=== PATIENT | male | born 1975 | race Caucasian/White ===

== ENCOUNTER 2018-01-02 20:29 | Inpatient (IN) ==
[2018-01-02] MEDS ORDERED: 0.9 % Sodium Chloride 1,000 ML IVC ONE ×3 (21:19→23:03)
--- NOTE | 2018-01-02 21:24 | Emergency Department Note ---
START Narrative - START START: Patient is a 42-year-old male smoker with known h/o of IV drug use that arrives via squad to ED. He states he states he was seen in this department yesterday, was advised to be admitted, but had left AGAINST MEDICAL ADVICE. He states he had left to help take care of his children, his symptoms have worsened. He said he has made arrangements for his children and denies any reason to leave again. Patient had complained of lightheadedness in the waiting room. I had reviewed triage notes, and yesterday's documentation. Patient is afebrile, but he was tachycardia in the 130s. Patient has had positive blood cultures drawn yesterday, and provider documentation from yesterday mentions concern for septic emboli. Patient will be placed in a medical bed, care of this patient will be transferred over to attending and resident providers, please see their further documentation for details and disposition of patient. Patient denies any home antibiotics. I ordered an EKG, and fluids, repeat troponin since it was elevated yesterday, and sepsis workup.
[2018-01-02] MEDS ORDERED: Isovue-370 500 ML INFUS..BTL IV ONE ×2 (21:30→22:12)
[2018-01-02] MEDS ORDERED: Ketorolac 15 MG/ML VIAL IVP ONE (21:37)
[2018-01-02] MEDS ORDERED: Nicotine 14 MG PATCH.TD24 TD STA (21:42)
[2018-01-02] MEDS ORDERED: *HR* OxyCODONE/APAP 5/325 TABLET PO ONE (21:42)
[2018-01-02] MEDS ORDERED: Piperacillin/Tazobactam 3.375 GM in 0.9 % Sodium Chloride Mini Bag 100 ML IVPB ONE (21:45)
[2018-01-02 21:46] LABS: Bilirubin,Urine Negative (Negative); Blood,Urine Large (Negative); Clarity,Urine Clear (Clear); Color,Urine Dark Yellow (Yellow); Glucose,Urine (UA) Normal (Normal); Ketones,Urine Negative (Negative); Leukocyte Esterase,Urine Negative (Negative); Nitrite,Urine Negative (Negative); Protein,Urine 100 mg/dL (Neg-Trace); Specific Gravity,Urine > 1.030 (1.010-1.025); Urobilinogen,Urine Normal (Normal)
[2018-01-02 21:48] LABS: Bacteria,Urine None Seen per hpf (None-Few); Hyaline Casts,Urine Few per lpf (None-Few); RBC,Urine 0-3 per hpf (0-3); Squamous Epithelial Cell,Urine Many per lpf (None-Few)
[2018-01-02 21:59] LABS: Basophils # 0.1 K/mcL (0.0-0.2); Basophils % 0.5 %; Eosinophils % 0.1 %; Hematocrit 42.4 % (37.5-50.1); Hemoglobin 14.6 g/dL (12.9-16.9); Immature Granulocytes % 1.1 % (0-4); Lymphocytes # 0.8 K/mcL (0.6-4.6); Lymphocytes % 5.2 %; Mean Corpuscular HGB Conc 34.4 g/dL (31.6-35.5); Mean Corpuscular Hemoglobin 28.2 pg (28.0-33.3); Mean Platelet Volume 12.4 fL (9.4-12.4); Monocytes % 6.1 %; Platelet Count 145 K/mcL (140-400); Red Blood Count 5.17 M/mcL (4.19-5.50); Red Cell Distribution Width 13.7 % (11.5-14.5)
--- NOTE | 2018-01-02 22:00 | Emergency Department Note ---
Disposition Clinical Impression: Elevated troponin, Staphylococcus aureus bacteremia with sepsis, IV drug user Pulmonary emboli Qualifiers: Pulmonary embolism type: septic Chronicity: acute Acute cor pulmonale presence : without acute cor pulmonale Qualified Code(s): I26.90 - Septic pulmonary embolism without acute cor pulmonale Disposition: Admitted As Inpatient Condition: Fair Referrals: NONE,PCP [Primary Care Provider] - Forms: ED Satisfaction Letter, Work/School Release General Adult HPI - General Chief complaint: ED General Medical Stated complaint: joint pain Time Seen by Provider: 01/02/18 21:14 Source: patient Limitations: no limitations Nursing Notes Reviewed: Yes Vital Signs Reviewed: Yes - History of Present Illness HPI Narrative: 42-year-old male presents to the emergency department with concern for chest pain and left shoulder pain. Patient was recently seen in the emergency yesterday by me and left AGAINST MEDICAL ADVICE. States that he is feeling worse. Patient states that he mostly had abdominal pain yesterday, he is now having chest pain that he reports as really sharp in nature. Pain Scale: 10 - Related Data Home Medications Medication Instructions Recorded Confirmed Cyclobenzaprine HCl 5 mg PO TID 01/01/18 01/02/18 [Cyclobenzaprine HCl] OxyCODONE Immed Rel [Roxicodone 10 10 mg PO TID 01/01/18 01/02/18 MG] Allergies Allergy/AdvReac Type Severity Reaction Status Date / Time venom-honey bee Allergy See Verified 01/02/18 20:46 [bee venom (honey bee)] Comments All systems ED: reviewed and negative except as stated. Review of Systems: As Per HPI Constitutional: Reports: fever, chills Cardiovascular: Reports: chest pain Respiratory: Reports: cough, dyspnea. Denies: wheezes, hemoptysis Gastrointestinal: Denies: abdominal pain, nausea, vomiting Genitourinary: Denies: urgency, dysuria, frequency Musculoskeletal: Reports: other (Left shoulder pain). Denies: back pain Integumentary: Denies: rash Neurological: Denies: headache, weakness, numbness, paresthesias Past Medical History - Past Medical History Medical history: Reports: cancer, other Psychiatric history: Reports: no psych history - Social History Smoking Status: Current every day smoker Smokeless Tobacco Status: No Alcohol use: Reports: none Drug use: Reports: marijuana, IV Drug Use Physical Exam - General Limitations: no limitations General appearance: alert - Head Head exam: atraumatic, normocephalic - Eye Eye exam: Present: EOMI - ENT ENT exam: normal oropharynx, mucous membranes moist - Neck Neck exam: Present: trachea midline. Absent: tenderness, meningismus - Chest Chest inspection: Present: normal inspection, symmetric chest wall rise - Respiratory Respiratory exam: Present: other (Rhonchi throughout). Absent: respiratory distress - Cardiovascular Cardiovascular exam: Present: regular rate, normal rhythm, normal heart sounds - Abdominal Exam Abdominal exam: Present: soft, Non-Tender. Absent: distention, guarding, rebound, rigidity - Extremities Exam Extremities exam: Present: normal capillary refill, other (Left shoulder tenderness upon palpation of the anterior proximal humerus. Neurovascularly intact) - Neurological Exam Neurological exam: Present: alert, oriented X3, CN II-XII intact - Psychiatric Psychiatric exam: Present: normal affect, normal mood - Skin Skin exam: Present: warm, dry, intact, normal color Course Vital Signs Temperature 98.2 F 01/02/18 20:43 Pulse Rate 131 01/02/18 20:43 Respiratory Rate 18 01/02/18 20:43 Blood Pressure 122/73 01/02/18 20:43 O2 Sat by Pulse Oximetry 95 01/02/18 20:43 Temperature 98.2 F 01/02/18 20:46 Pulse Rate 113 01/02/18 22:50 Respiratory Rate 20 01/02/18 22:50 Blood Pressure 108/73 01/02/18 22:50 O2 Sat by Pulse Oximetry 99 01/02/18 22:50 Oxygen Delivery Oxygen Delivery Room Air Medical Decision Making - [facility] Narrative Medical decision making narrative: 42-year-old male presents to the emergency department with concern for pulmonary emboli. Patient was seen in the emergency department by me yesterday and had a CT scan of abdomen and pelvis that was concerning for home emboli. Patient left AGAINST MEDICAL ADVICE before I could obtain a CT angiogram of the chest. Patient currently reporting chest pain. Patient has sinus rhythm with shortened TN interval. Patient given Toradol here in the emergency department as well as Percocet. Leukocytosis of 16,000 today. Yesterday was 17,000. Patient did get 2 g of Rocephin IV yesterday in the emergency department before leaving AGAINST MEDICAL ADVICE as there is concern for possible infected kidney stone. However , CT scan of abdomen and pelvis did not reveal stone. Revealed suspicion of septic pulmonary emboli. Today, however, we started IV vancomycin and Zosyn. Patient had blood culture positive for staph aureus. Do not have the sensitivities back. Patient was given 2 L of fluid with 0.9 normal saline. Lactic acid is within normal limits. Troponin is mildly elevated at 0.05. EKG does not reveal any changes from yesterday. Patient is hyponatremic with a sodium of 124. There is concern for infective endocarditis as patient has a CTA positive for numerous pulmonary nodules, some with cavitation, and some with a feeding vessel , the constellation which is compatible with septic emboli. Patient admitted to the hospitalist. Patient agree with plan. Patient requesting help for his IV drug abuse as well. Chest X-Ray 01/02/18 21:19 IMPRESSION: No focal consolidation. Prominence of interstitial lung markings may represent underlying COPD versus atypical infection. Previously seen pulmonary nodules are not well seen. This can be evaluated on a CT chest. This has been already ordered. D/ / 01/02/2018 21:53:04 Kyle Maciel MD / noe Interpreting Provider: Kyle Maciel MD Chest CTA 01/02/18 21:30 IMPRESSION: Numerous pulmonary nodules, some with cavitation, and some with a feeding vessel, the constellation of which is most compatible with septic emboli. However, these must be followed to resolution to ensure that there is no underlying neoplasm. D/ / Juan Rodriguez MD / Juan Rodriguez MD Interpreting Provider: Juan Rodriguez MD - Lab Data Result diagrams: 01/02/18 21:44 01/02/18 21:44 Lab Results 01/02/18 01/02/18 01/02/18 Range/Units 21:35 21:44 21:44 WBC 16.0 H (4.3-11.1) K/mcL RBC 5.17 (4.19-5.50) M/mcL Hgb 14.6 (12.9-16.9) g/dL Hct 42.4 (37.5-50.1) % MCV 82.0 L (83.0-100.0) fL MCH 28.2 (28.0-33.3) pg MCHC 34.4 (31.6-35.5) g/dL RDW 13.7 (11.5-14.5) % Plt Count 145 (140-400) K/mcL MPV 12.4 (9.4-12.4) fL Immature Gran % 1.1 (0-4) % Seg Neutrophils % 87.0 % Lymphocytes % 5.2 % Monocytes % 6.1 % Eosinophils % 0.1 % Basophils % 0.5 % Neutrophils # 13.9 H (1.6-8.9) K/mcL Lymphocytes # 0.8 (0.6-4.6) K/mcL Monocytes # 1.0 (0.0-1.3) K/mcL Eosinophils # 0.0 (0.0-0.6) K/mcL Basophils # 0.1 (0.0-0.2) K/mcL Platelet Estimate Normal (Normal) Sodium 124 L (136-145) mEq/L Potassium 4.2 (3.5-5.1) mEq/L Chloride 88 L (98-107) mEq/L Carbon Dioxide 27 (23-29) mEq/L BUN 31 H (6-20) mg/dL Creatinine 0.77 (0.70-1.30) mg/dL Est GFR ( Amer) > 60 (> 60) Est GFR (Non-Af Amer) > 60 (> 60) BUN/Creatinine Ratio 40 H (6-26) Glucose 108 H (70-105) mg/dL Calculated Osmolality 265 L (280-300) Lactic Acid (0.5-2.2) mmol/L Calcium 9.7 (8.6-10.3) mg/dL Troponin I 0.05 H* (< 0.04) ng/mL Urine Color Dark Yellow (Yellow) Urine Clarity Clear (Clear) Urine pH 6.0 (5.0-8.0) pH Units Ur Specific [place] > 1.030 H (1.010-1.025) Urine Protein 100 H (Neg-Trace) mg/dL Urine Glucose (UA) Normal (Normal) mg/dL Urine Ketones Negative (Negative) mg/dL Urine Blood Large H (Negative) Urine Nitrite Negative (Negative) Urine Bilirubin Negative (Negative) Urine Urobilinogen Normal (Normal) mg/dL Ur Leukocyte Esterase Negative (Negative) Urine Microscopic RBC 0-3 (0-3) per hpf Urine Microscopic WBC 3-5 H (0-3) per hpf Ur Squamous Epith Cells Many H (None-Few) per lpf Urine Bacteria None Seen (None-Few) per hpf Hyaline Casts Few (None-Few) per lpf Ur Culture Indicated? NO (NO) 01/02/18 Range/Units 21:44 WBC (4.3-11.1) K/mcL RBC (4.19-5.50) M/mcL Hgb (12.9-16.9) g/dL Hct (37.5-50.1) % MCV (83.0-100.0) fL MCH (28.0-33.3) pg MCHC (31.6-35.5) g/dL RDW (11.5-14.5) % Plt Count (140-400) K/mcL MPV (9.4-12.4) fL Immature Gran % (0-4) % Seg Neutrophils % % Lymphocytes % % Monocytes % % Eosinophils % % Basophils % % Neutrophils # (1.6-8.9) K/mcL Lymphocytes # (0.6-4.6) K/mcL Monocytes # (0.0-1.3) K/mcL Eosinophils # (0.0-0.6) K/mcL Basophils # (0.0-0.2) K/mcL Platelet Estimate (Normal) Sodium (136-145) mEq/L Potassium (3.5-5.1) mEq/L Chloride (98-107) mEq/L Carbon Dioxide (23-29) mEq/L BUN (6-20) mg/dL Creatinine (0.70-1.30) mg/dL Est GFR ( Amer) (> 60) Est GFR (Non-Af Amer) (> 60) BUN/Creatinine Ratio (6-26) Glucose (70-105) mg/dL Calculated Osmolality (280-300) Lactic Acid 2.1 (0.5-2.2) mmol/L Calcium (8.6-10.3) mg/dL Troponin I (< 0.04) ng/mL Urine Color (Yellow) Urine Clarity (Clear) Urine pH (5.0-8.0) pH Units Ur Specific [place] (1.010-1.025) Urine Protein (Neg-Trace) mg/dL Urine Glucose (UA) (Normal) mg/dL Urine Ketones (Negative) mg/dL Urine Blood (Negative) Urine Nitrite (Negative) Urine Bilirubin (Negative) Urine Urobilinogen (Normal) mg/dL Ur Leukocyte Esterase (Negative) Urine Microscopic RBC (0-3) per hpf Urine Microscopic WBC (0-3) per hpf Ur Squamous Epith Cells (None-Few) per lpf Urine Bacteria (None-Few) per hpf Hyaline Casts (None-Few) per lpf Ur Culture Indicated? (NO) - Radiology Data Radiology results reviewed: Yes I reviewed the patient's radiology results. - EKG Data EKG #1 EKG attestation: Yes I reviewed and interpreted this EKG. EKG results narrative: 21:19 Ventricular rate 99 bpm, TN interval 97 ms, QRS duration 85 ms, QT 294 ms, QTC 350 ms, normal axis. Sinus rhythm with short TN interval. There is diffuse ST segment elevation of 1 mm.
[2018-01-02 22:03] LABS: Neutrophils # 13.9 K/mcL (1.6-8.9)
[2018-01-02 22:21] LABS: BUN/Creatinine Ratio 40 (6-26); Blood Urea Nitrogen 31 mg/dL (6-20); Calcium 9.7 mg/dL (8.6-10.3); Carbon Dioxide 27 mEq/L (23-29); Chloride 88 mEq/L (98-107); Glucose 108 mg/dL (70-105); Osmolality,Calculated 265 (280-300); Potassium 4.2 mEq/L (3.5-5.1); Sodium 124 mEq/L (136-145); eGFR For African Americans > 60 (> 60); eGFR For Non-African Americans > 60 (> 60)
[2018-01-02 22:24] LABS: Platelet Estimate Normal (Normal)
[2018-01-02 22:29] LABS: Troponin I 0.05 ng/mL (< 0.04)
[2018-01-03] MEDS ORDERED: Naloxone 0.4 MG/ML INJ IVP PRN (02:40)
[2018-01-03] MEDS ORDERED: Acetaminophen 325 MG TABLET PO PRN (02:40)
[2018-01-03] MEDS ORDERED: Vancomycin (wt based) 1,000 MG VIAL IVPB SCH (03:00)
--- NOTE | 2018-01-03 03:50 | Internal Med History&Physical ---
Date of Encounter: 01/03/18 Time of Encounter: 01:00 Internal Medicine - H&P: HPI Chief complaint: Weakness Admitted From: Home Plans for Post Hospital Care: Home History of present illness: Mr. Cornelius is a 42 year old male presented to ER for generalized weakness for 4 days. Past medical history is significant for hypertension, IV drug use, patient also said he has cancer but cannot define which kind of cancer (said on back L4 and L5). Patient has generalized weakness and whole-body pain for about 4 days. Has cough with brownish and greenish sputum. Patient also reported fever at home with temperature 100.4. Patient denies nausea, vomiting, or diarrhea, or abdominal pain. Patient presented to ER yesterday and was advised to be hospitalized. Patient refused hospitalization and signed AMA. Today his symptoms is getting worse and patient came to ER again. Patient had blood culture positive and further CTA shows suspected septic emboli. Patient meets sepsis criteria with tachycardia and fever and leukocytosis. He was started with IV fluid and antibiotics. Patient was admitted for further management. 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 NECK AND BACK SURGERY - Social History Smoking Status: Current every day smoker Smokeless Tobacco Status: No Alcohol use: none Drug use: marijuana, IV Drug Use - Family History Mother Hx Family Cardiac Disorders: Yes Internal Medicine - H&P: Meds Cyclobenzaprine HCl [Cyclobenzaprine HCl] 5 mg PO TID 01/01/18 [History] OxyCODONE Immed Rel [Roxicodone 10 MG] 10 mg PO TID 01/01/18 [History] 3 Allergy/AdvReac Type Severity Reaction Status Date / Time venom-honey bee Allergy See Verified 01/02/18 20:46 [bee venom (honey bee)] Comments All Systems PM: A 10-system review of systems was performed and is negative for pertinent findings except as documented above in the HPI. - Constitutional Vitals: Temp Pulse Resp BP Pulse Ox 98.6 F 66 16 101/60 96 01/03/18 03:07 01/03/18 03:07 01/03/18 03:07 01/03/18 03:07 01/03/18 03:07 General appearance: Present: A&O X 3, no acute distress, answers questions appropriately Exam: Patient is very lethargic - Head Head exam: Present: atraumatic, normocephalic - Eye Eye exam: Present: PERRL, conjuntiva pink, sclera anicteric Pupils: Present: PERRL - Neck Neck exam general surgery: Present: supple, trachea midline. Absent: lymphadenopathy - Respiratory Respiratory exam: Present: CTAB. Absent: accessory muscle use, rales, rhonchi, wheezes - Cardiovascular Cardiovascular exam: Present: RRR, +S1, +S2. Absent: diastolic murmur, gallop, rubs, systolic murmur - GI/Abdominal GI/Abdominal exam: Present: normal bowel sounds, soft, no peritoneal signs. Absent: distended, tenderness - Extremities Exam Extremities exam: Present: warm, radial pulses palpable and symmetrical. Absent : calf tenderness, cyanotic, pedal edema - Neurological Exam Neurological exam: Present: CN II-XII intact, oriented X3, no focal deficits. Absent: pronater drift, facial droop, speech deficit - Skin Skin exam: Present: dry, intact Internal Med - H&P Results - Labs CBC & Chem 7: 01/02/18 21:44 01/02/18 21:44 - Assessment and plan (1) Elevated troponin Current Visit: Yes Status: Acute Assessment and plan: Mild elevated troponin. Patient denies chest pain. Continue cardiac monitoring and track 3 sets of troponin (2) IV drug user Current Visit: Yes Status: Acute Assessment and plan: History of IV drug use. Consult manager social media. Check hepatitis and HIV panel (3) Staphylococcus aureus bacteremia with sepsis Current Visit: Yes Status: Acute Assessment and plan: Patient has positive blood culture. PCR shows positive MRSA. History of IV drug use. Meet sepsis criteria with fever, tachycardia, and leukocytosis. - IV fluid, antibiotics started in ER - Continue IV Vanco and Zosyn, repeated blood culture - Echocardiogram to rule out endocarditis - ID consult for further management (4) Hyponatremia Current Visit: No Status: Acute Assessment and plan: Place patient on 0.9% saline IV. Closely monitor sodium level, goal of correction is less than 8-10 mEq over 24 hours. (5) Septic embolism Current Visit: No Status: Acute Assessment and plan: Continue antibiotic treatment. Echo to rule out endocarditis. (6) Strain of shoulder, right Current Visit: No Status: Acute Assessment and plan: Patient had shoulder x-ray on 12/29, unremarkable. Continue pain management Qualifiers: Encounter type: subsequent encounter Qualified Code(s): S46.911D - Strain of unspecified muscle, fascia and tendon at shoulder and upper arm level, right arm, subsequent encounter (7) DVT prophylaxis Current Visit: Yes Status: Acute Assessment and plan: Heparin subcutaneously - Time Spent With Patient Total time spent is greater than 50% in coordination of care (as documented) at patient's floor/unit and/or counseling patient: 40 minutes Greater than 35 minutes
[2018-01-03 03:59] LABS: Basophils # 0.1 K/mcL (0.0-0.2); Basophils % 0.4 %; Eosinophils % 0.3 %; Hematocrit 34.2 % (37.5-50.1); Lymphocytes # 0.9 K/mcL (0.6-4.6); Lymphocytes % 6.4 %; Mean Corpuscular HGB Conc 34.8 g/dL (31.6-35.5); Mean Corpuscular Hemoglobin 27.9 pg (28.0-33.3); Mean Corpuscular Volume 80.3 fL (83.0-100.0); Mean Platelet Volume 12.6 fL (9.4-12.4); Monocytes % 6.8 %; Neutrophils # 12.3 K/mcL (1.6-8.9); Platelet Count 122 K/mcL (140-400); Red Blood Count 4.26 M/mcL (4.19-5.50); Red Cell Distribution Width 13.9 % (11.5-14.5); Segmented Neutrophils % 85.1 %
[2018-01-03 04:17] LABS: Alanine Aminotransferase 47 Units/L (7-52); Albumin 2.6 g/dL (3.5-5.7); Albumin/Globulin Ratio 0.9 (1.1-2.2); Alkaline Phosphatase 83 Units/L (34-104); Aspartate Amino Transferase 92 Units/L (13-39); BUN/Creatinine Ratio 46 (6-26); Bilirubin,Total 0.9 mg/dL (0.3-1.0); Blood Urea Nitrogen 36 mg/dL (6-20); Calcium 8.8 mg/dL (8.6-10.3); Carbon Dioxide 24 mEq/L (23-29); Chloride 93 mEq/L (98-107); Glucose 114 mg/dL (70-105); Osmolality,Calculated 265 (280-300); Potassium 3.8 mEq/L (3.5-5.1); Sodium 123 mEq/L (136-145); Total Protein 5.6 g/dL (6.4-8.9); eGFR For African Americans > 60 (> 60); eGFR For Non-African Americans > 60 (> 60)
[2018-01-03 04:37] LABS: Hemoglobin 11.9 g/dL (12.9-16.9)
[2018-01-03 04:39] LABS: Platelet Estimate Normal (Normal)
[2018-01-03] MEDS: 0.9 % Sodium Chloride 1,000 ML IVC SCH ×2 (04:46→16:27)
[2018-01-03] MEDS: *HR* Heparin 5,000 UNIT/ML VIAL SQ SCH ×2 (04:48→16:50)
[2018-01-03 05:09] LABS: HIV-1&2 Antibody & p24 Ag Nonreactive (Nonreactive); Hepatitis A Antibody IgM Nonreactive (Nonreactive)
[2018-01-03 05:11] LABS: Hepatitis B Surface Antigen Reactive (Nonreactive)
[2018-01-03 05:12] LABS: Hepatitis B Core IgM Grayzone (Nonreactive); Hepatitis C Virus Antibody Reactive (Nonreactive)
[2018-01-03] MEDS ORDERED: Piperacillin/Tazobactam 3.375 GM in 0.9 % Sodium Chloride Mini Bag 100 ML IVPB SCH (08:00)
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
[2018-01-03] MEDS ORDERED: *HR* OxyCODONE Immed Rel 5 MG TABLET PO PRN (10:41)
[2018-01-03] MEDS ORDERED: SUMAtriptan 6 MG/0.5 ML SQ ONE (13:47)
[2018-01-03] MEDS ORDERED: Sennosides/Docusate Sodium TABLET PO SCH (15:00)
[2018-01-03] MEDS ORDERED: Isovue-370 500 ML INFUS..BTL IV ONE (15:29)
[2018-01-03 15:50] VITALS: BP 111/67
[2018-01-03] MEDS ORDERED: Albuterol 2.5 MG/3 ML NEBULIZER IH ONE (15:59)
[2018-01-03] MEDS ORDERED: Nitroglycerin 0.4 MG TAB.SUBL SL ONE (15:59)
[2018-01-03] MEDS ORDERED: Aspirin 325 MG TABLET PO ONE (16:21)
[2018-01-03] MEDS ORDERED: methylPREDNISolone 125 MG/2 ML VIAL IVP ONE (16:21)
--- NOTE | 2018-01-03 16:32 | Internal Med Progress Note ---
Date of Encounter: 01/03/18 Time of Encounter: 16:28 - Assessment and plan (1) Hyponatremia Current Visit: No Status: Acute (2) Septic embolism Current Visit: No Status: Acute (3) Elevated troponin Current Visit: Yes Status: Acute (4) Staphylococcus aureus bacteremia with sepsis Current Visit: Yes Status: Acute (5) IV drug user Current Visit: Yes Status: Acute (6) DVT prophylaxis Current Visit: Yes Status: Acute (7) Chest pain Current Visit: Yes Status: Acute Qualifiers: Chest pain type: chest pain on breathing Qualified Code(s): R07.1 - Chest pain on breathing; R07.81 - Pleurodynia (8) Endocarditis Current Visit: Yes Status: Acute Qualifiers: Endocarditis type: infective Infective endocarditis organism: bacterial Chronicity: acute Qualified Code(s): I33.0 - Acute and subacute infective endocarditis - Time Spent With Patient Plan Severe sepsis. Multiple septic emboli in the lung, possible infective endocarditis, thickening of all peptic valve cannot rule out abscess Secondary to MRSA bacteremia. Case discussed with cardiology on-call. Patient had EKG stat, ST changes in anterior lead, mild elevation of troponin, aspirin 325 stat , was transferred patient to ICU, continue current treatment, for his pleuritic chest pain when add solu Medrol, patient stated last IV drug use was last week heroin. Close monitoring of patient condition, trend troponin, may consider heparin drip will discussed with cardiology. - Subjective Interval history: Patient complain of diffuse chest pain increase with taking deep breath 6 out of 10 in severity. Patient denies any dizziness lightheadedness, patient denies any palpitation, patient stated that he is trying to take shallow breaths because chest pain get worse when he takes a deep breath - Constitutional Vitals: Temp Pulse Resp BP Pulse Ox 100.0 F H 112 17 111/67 100 01/03/18 15:36 01/03/18 15:36 01/03/18 15:36 01/03/18 15:36 01/03/18 15:36 General appearance: Present: cooperative, A&O X 3, answers questions appropriately - Neck Neck exam general surgery: Present: supple, trachea midline. Absent: lymphadenopathy - Respiratory Respiratory exam: Present: decreased breath sounds (Diffuse chest wall tenderness). Absent: accessory muscle use, rales, rhonchi, wheezes - Cardiovascular Cardiovascular exam: Present: RRR, +S1, +S2, systolic murmur. Absent: diastolic murmur, gallop, rubs - GI/Abdominal GI/Abdominal exam: Present: normal bowel sounds, soft, no peritoneal signs. Absent: distended, tenderness - Extremities Exam Extremities exam: Present: warm, radial pulses palpable and symmetrical. Absent : calf tenderness, cyanotic, pedal edema - Neurological Exam Neurological exam: Present: CN II-XII intact, oriented X3, no focal deficits. Absent: pronater drift, facial droop, speech deficit Internal Medicine: Result - Labs CBC & Chem 7: 01/03/18 03:32 01/03/18 03:32 Labs: Short CBC 01/03/18 Range/Units 03:32 WBC 14.5 H (4.3-11.1) K/mcL Hgb 11.9 L D (12.9-16.9) g/dL Hct 34.2 L (37.5-50.1) % Plt Count 122 L (140-400) K/mcL Neutrophils # 12.3 H (1.6-8.9) K/mcL BMP 01/03/18 03:32 Sodium 123 L Potassium 3.8 Chloride 93 L Carbon Dioxide 24 BUN 36 H Creatinine 0.78 Glucose 114 H Calcium 8.8 Cardiac Enzymes 01/03/18 01/03/18 Range/Units 03:32 10:00 Troponin I 0.04 H* 0.06 H* (< 0.04) ng/mL Liver Function 01/03/18 Range/Units 03:32 Total Bilirubin 0.9 (0.3-1.0) mg/dL AST 92 H (13-39) Units/L ALT 47 (7-52) Units/L Alkaline Phosphatase 83 (34-104) Units/L Albumin 2.6 L (3.5-5.7) g/dL - Impressions Impressions Echocardiogram 01/03/18 02:45 Impressions: LVEF 50-55%. Normal LV chamber size, wall thickness and function. Mild left ventricular diastolic dysfunction. Normal right ventricular structure and function. Trileaflet aortic valve. Very small, mobile echodensity noted in the parasternal long axis suggestive of vegetation. Annulus and leaflets (especially the right coronary cusp) appear thickened in the short axis; cannot exclude abscess. No aortic regurgitation. No aortic stenosis. Mildly thickened mitral valve leaflets, especially the anterior leaflet, as well as the subvalvular apparatus. Small, mobile echodensity noted possibly adherent to the anterior mitral valve leaflet. Findings suggestive of vegetation. Normal tricuspid valve function. No obvious vegetation noted. Unable to estimate RVSP due to lack of TR jet. Consider JW to further evaluate if clinically indicated. Findings sent to ordering physician via [employer]. Left Ventricular Wall Motion: Rest Echo Findings All wall segments showed normal motion. Findings: Study Quality * Technically adequate exam. ECG Findings * Normal sinus rhythm. Left Ventricle * LVEF 50-55%. * Normal LV chamber size, wall thickness and function. * Mild left ventricular diastolic dysfunction. Right Ventricle * Normal right ventricular structure and function. Left Atrium * Mildly dilated left atrium. Right Atrium * Mildly dilated right atrium. Aortic Valve * Trileaflet aortic valve. Very small, mobile echodensity noted in the parasternal long axis suggestive of vegetation. Annulus and leaflets (especially the right coronary cusp) appear thickened in the short axis; cannot exclude abscess. * No aortic regurgitation. * No aortic stenosis. Mitral Valve * Mildly thickened mitral valve leaflets, especially the anterior leaflet, as well as the subvalvular apparatus. Small, mobile echodensity noted possibly adherent to the anterior mitral valve leaflet. Findings suggestive of vegetation. * Trace mitral regurgitation. * No mitral stenosis. Tricuspid Valve * Normal tricuspid valve function. No obvious vegetation noted. * No tricuspid regurgitation. * Unable to estimate RVSP due to lack of TR jet. Pulmonic Valve * Normal pulmonic valve structure and function. * No pulmonic regurgitation. Aorta * Normally sized aortic root. Pericardium * The pericardium appears normal. IVC * Normal IVC dimensions and inspiratory collapse. Pulmonary Artery * Normal visualized portions of the main pulmonary artery. Consult Discharge Plan - Plan Referrals: NONE,PCP [Primary Care Provider] -
[2018-01-03] MEDS ORDERED: Albumin 25% 25gram/100mL 25 GM/100 ML IV.SOLN IVPB ONE (16:49)
[2018-01-03] MEDS ORDERED: *HR* LORazepam 2 MG/ML VIAL IVP ONE (16:59)
--- NOTE | 2018-01-03 17:03 | Event Note ---
Date of Encounter: 01/03/18 Time of Encounter: 17:02 Case discussed with cardiology and cardiothoracic surgery, recommended for patient to be transferred to [facility], [facility] called awaiting for callback
--- NOTE | 2018-01-03 17:13 | Discharge Summary ---
Orders not resulted at time of discharge: Pending orders 01/03/18 03:32 HBSAG Confirmation Routine 01/03/18 10:53 Hepatitis Be Antibody Routine Hepatitis Be Antigen Routine 01/03/18 15:29 CT thoracic spine w con [CT] Routine 01/03/18 15:31 CT lumbar spine w con [CT] Routine CT shoulder RT w con [CT] Routine 01/03/18 15:59 EKG [ECG 12 lead ECG] [ECG] Stat 01/04/18 09:00 Vancomycin,Trough Timed Date of Encounter: 01/03/18 Time of Encounter: 17:10 - Discharge Diagnosis (1) Hyponatremia Priority: Secondary Status: Acute (2) Septic embolism Priority: Primary Status: Acute (3) Elevated troponin Priority: Primary Status: Acute (4) Staphylococcus aureus bacteremia with sepsis Priority: Primary Status: Acute (5) IV drug user Priority: Primary Status: Acute (6) DVT prophylaxis Priority: Secondary Status: Acute (7) Chest pain Priority: Primary Status: Acute Qualifiers: Chest pain type: chest pain on breathing Qualified Code(s): R07.1 - Chest pain on breathing; R07.81 - Pleurodynia (8) Endocarditis Priority: Primary Status: Acute Qualifiers: Endocarditis type: infective Infective endocarditis organism: bacterial Chronicity: acute Qualified Code(s): I33.0 - Acute and subacute infective endocarditis Hospital course: Mr. 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 The patient was admitted to the hospital January 02 for bacteremia, hypo-natremia, and septic emboli. The patient presented to the emergency department originally back on January 01 with complaints of fever and abdominal pain with nausea and vomiting. At that time, he had to sepsis criteria including tachycardia and leukocytosis with bandemia and lactic acidosis. He had a CT of his abdomen and pelvis that showed septic emboli in the bilateral lungs, left worse than right. He had blood cultures obtained that we will are +2 out of 2 sets for MRSA per PCR. He signed out AMA because he had make arrangements for his children, but he came back to the emergency department yesterday. Upon arrival yesterday, he was tachycardic and had leukocytosis with neutrophilic predominance. Repeat blood cultures were obtained and are pending 2 sets. He was noted to have a mildly elevated troponin of 0.05. His lactic acidosis had resolved. He had a chest x-ray that showed findings consistent with COPD versus atypical infection. He had a dedicated CTA of the chest that showed multiple pulmonary nodules, some with cavitation consistent with septic emboli. He was started empirically on IV vancomycin and IV Zosyn and admitted to the hospital for further evaluation. His white blood cell count is trending down. Repeat blood cultures drawn January 02 are pending. Hepatitis profile was obtained and the patient's hep B surface antigen is positive and his hep B core IgM antibody is in the kulkarni zone. His hep C antibody is positive as well. HIV is negative. Currently, the patient's IV Vanco and Zosyn. with his Severe sepsis. Multiple septic emboli in the lung , possible infective endocarditis, thickening of all peptic valve cannot rule out abscess Secondary to MRSA bacteremia. Case discussed with cardiology on- call. Patient had EKG stat, ST changes in anterior lead, mild elevation of troponin, aspirin 325 stat, was transferred patient to ICU, continue current treatment, for his pleuritic chest pain when add solu Medrol, patient stated last IV drug use was last week heroin. Close monitoring of patient condition, trend troponin, discussed with critical care team cardiology cardiothoracic surgery, after reviewing EKG by cardiology team recommended for patient to be transferred to [facility]. Discussed with [facility] team recommended aspirin 325 Plavix 600 in addition to heparin drip. Patient to be transferred to [facility] - Time Spent with Patient Total time spent providing and/or coordinating discharge services: Greater than 30 minutes - Discharge Medications Home Medications: Cyclobenzaprine HCl [Cyclobenzaprine HCl] 5 mg PO TID 01/01/18 [History] OxyCODONE Immed Rel [Roxicodone 10 MG] 10 mg PO TID 01/01/18 [History] Allergies/Adverse Reactions: 3 Allergy/AdvReac Type Severity Reaction Status Date / Time venom-honey bee Allergy See Verified 01/02/18 20:46 [bee venom (honey bee)] Comments Date of admission: 01/03/18 02:40 Primary care physician: PCP NONE Consults: 01/03/18 02:46 Consult to Infectious Diseases [CONS] Routine Consulting Provider: Infectious Disease Deirdre Reason for Consult: bacteremia Call Completed: No 01/03/18 16:47 Consult to Cardiology [CONS] Routine Comment: Consulting Provider: Cardiology Arrington Reason for Consult: infective endocarditis, chest pain , EKG changes , discussed with Dr MIN Call Completed: Yes 01/03/18 16:51 Consult to Pulmonology [CONS] Routine Consulting Provider: Pulm Crit Care [facility] Sleep Deirdre Reason for Consult: septic empoli lung , Chest pain , sepsis Call Completed: Yes - Constitutional Vitals: Temp Pulse Resp BP Pulse Ox 100.0 F H 112 16 111/67 100 01/03/18 15:36 01/03/18 15:36 01/03/18 16:32 01/03/18 15:36 01/03/18 16:32 General appearance: Present: cooperative, A&O X 3, answers questions appropriately - Patient Status Disposition: Admitted As Inpatient Condition: Fair - Discharge Instructions Follow Up With: NONE,PCP [Primary Care Provider] -
[2018-01-03] MEDS ORDERED: Heparin 25,000 UNIT/500 ML D5W 25,000 UNIT/500 ML BAG IVC SCH (17:15)
[2018-01-03] MEDS ORDERED: *HR* Heparin 5,000 UNIT/ML VIAL IVP PRN ×2 (17:15)
[2018-01-03] MEDS ORDERED: *HR* Heparin 5,000 UNIT/ML VIAL IVP ONE (17:15)
--- NOTE | 2018-01-03 17:53 | Electrocardiograph Report ---
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
[2018-01-03 18:55] LABS: Hematocrit 40.7 % (37.5-50.1); Mean Corpuscular HGB Conc 34.2 g/dL (31.6-35.5); Mean Corpuscular Hemoglobin 28.2 pg (28.0-33.3); Mean Corpuscular Volume 82.6 fL (83.0-100.0); Mean Platelet Volume 13.2 fL (9.4-12.4); Platelet Count 143 K/mcL (140-400); Red Blood Count 4.93 M/mcL (4.19-5.50); Red Cell Distribution Width 14.1 % (11.5-14.5)
[2018-01-03] MEDS ORDERED: Aminoglycoside Consult 1 EACH MC ONE (18:58)
[2018-01-03 19:00] LABS: Hemoglobin 13.9 g/dL (12.9-16.9)
[2018-01-03 19:04] LABS: INR 1.2; Prothrombin Time 13.1 Seconds (9.4-12.1)
[2018-01-04 07:32] LABS: Acinetobacter baumannii by PCR Not Detected (Not Detect); Enterococcus by PCR Not Detected (Not Detect); Escherichia coli by PCR Not Detected (Not Detect); Klebsiella oxytoca by PCR Not Detected (Not Detect); Klebsiella pneumoniae by PCR Not Detected (Not Detect); Serratia marcescens by PCR Not Detected (Not Detect); Staphylococcus aureus by PCR ***DETECTED*** (Not Detect); Streptococcus agalactiae(B)PCR Not Detected (Not Detect); Streptococcus by PCR Not Detected (Not Detect); Streptococcus pneumoniae PCR Not Detected (Not Detect); Streptococcus pyogenes (A) PCR Not Detected (Not Detect); mecA Methicillin-Resist Gene ***DETECTED*** (Not Detect)
[2018-01-04 07:33] LABS: Candida albicans by PCR Not Detected (Not Detect); Candida glabrata by PCR Not Detected (Not Detect); Candida krusei by PCR Not Detected (Not Detect); Candida parapsilosis by PCR Not Detected (Not Detect); Candida tropicalis by PCR Not Detected (Not Detect); Pseudomonas aeruginosa by PCR Not Detected (Not Detect)
--- NOTE | 2018-01-06 08:02 | Electrocardiograph Report ---
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
[2018-01-06 09:19] LABS: Hepatitis Be Antibody NEGATIVE (Negative)
[2018-01-06 09:20] LABS: Hepatitis Be Antigen POSITIVE (Negative)
== END 2018-01-03 18:59 | disposition other institution (70) | DRG 871 ==
LOC: 3NENU 20:29 → EMEROO 20:29 → 3NENU 01-03 00:51
PROVIDERS: ADMIT Internal Medicine; ATTEND Internal Medicine

== ENCOUNTER 2020-11-25 02:57 | Inpatient (IN) ==
[2020-11-25 04:35] LABS: Basophils % 0.7 %; Immature Granulocytes % 0.4 % (0-4); Red Cell Distribution Width 14.1 % (11.5-14.5)
[2020-11-25 04:36] LABS: Basophils # 0.1 K/mcL (0.0-0.2); Eosinophils # 0.1 K/mcL (0.0-0.6); Eosinophils % 1.2 %; Immature Platelets 26.8 % (1.1-6.1); Lymphocytes # 1.7 K/mcL (0.6-4.6); Lymphocytes % 15.2 %; Mean Corpuscular Hemoglobin 28.4 pg (28.0-33.3); Mean Corpuscular Volume 88.8 fL (83.0-100.0); Monocytes # 0.9 K/mcL (0.0-1.3); Monocytes % 7.8 %; Neutrophils # 8.4 K/mcL (1.6-8.9); Red Blood Count 5.63 M/mcL (4.19-5.50); Segmented Neutrophils % 74.7 %; White Blood Count 11.2 K/mcL (4.3-11.1)
[2020-11-25 04:40] LABS: INR 1.1; Prothrombin Time 12.8 Seconds (9.4-12.1)
[2020-11-25 04:43] LABS: Activated Partial Thrombo Time 30.5 Seconds (26.0-36.0); Platelet Count 19 K/mcL (140-400)
[2020-11-25 04:46] LABS: BUN/Creatinine Ratio 17 (6-26); Blood Urea Nitrogen 17 mg/dL (6-20); Calcium 9.6 mg/dL (8.6-10.3); Carbon Dioxide 28 mEq/L (23-29); Chloride 103 mEq/L (98-107); Glucose 80 mg/dL (70-105); Osmolality,Calculated 287 (280-300); Potassium 3.7 mEq/L (3.5-5.1); Sodium 138 mEq/L (136-145); eGFR For African Americans > 60 (> 60); eGFR For Non-African Americans > 60 (> 60)
[2020-11-25 04:48] LABS: Troponin I < 0.03 ng/mL (< 0.04)
[2020-11-25] MEDS ORDERED: Isovue-370 500 ML BOTTLE IVP ONE ×2 (05:52→16:33)
[2020-11-25] MEDS ORDERED: Morphine Sulfate 2 MG/ML SYRINGE IVP ONE (07:18)
[2020-11-25] MEDS ORDERED: Ondansetron ODT 4 MG TAB.RAPDIS SL PRN (07:53)
[2020-11-25] MEDS ORDERED: Naloxone 0.4 MG/ML INJ IVP PRN (07:53)
[2020-11-25 09:43] LABS: Albumin 4.4 g/dL (3.5-5.7); Albumin/Globulin Ratio 1.1 (1.1-2.2); Bilirubin,Direct 0.2 mg/dL (0.0-0.2); Bilirubin,Indirect 0.8 mg/dL (0.0-1.0); Globulin 3.9 g/dL (2.4-3.5); Total Protein 8.3 g/dL (6.4-8.9)
[2020-11-25 11:03] LABS: Hepatitis B Surface Antibody < 3.10 mIU/mL
[2020-11-25 11:42] LABS: Hepatitis B Core IgM Nonreactive (Nonreactive)
[2020-11-25 12:00] LABS: Hepatitis B Surface Antigen Reactive (Nonreactive)
[2020-11-25] MEDS: Dexamethasone 4 MG/ML VIAL IVP SCH (17:49)
[2020-11-25] MEDS ORDERED: Isovue-370 500 ML BOTTLE PO ONE (17:51)
[2020-11-26 02:55] LABS: Basophils % 0.3 %; Monocytes % 1.6 %
[2020-11-26 02:57] LABS: Eosinophils % 0.1 %; Hematocrit 43.4 % (37.5-50.1); Hemoglobin 14.1 g/dL (12.9-16.9); Immature Granulocytes % 0.8 % (0-4); Immature Platelets 30.4 % (1.1-6.1); Lymphocytes # 0.9 K/mcL (0.6-4.6); Lymphocytes % 6.8 %; Mean Corpuscular HGB Conc 32.5 g/dL (31.6-35.5); Mean Corpuscular Hemoglobin 28.1 pg (28.0-33.3); Mean Corpuscular Volume 86.6 fL (83.0-100.0); Monocytes # 0.2 K/mcL (0.0-1.3); Red Blood Count 5.01 M/mcL (4.19-5.50); Red Cell Distribution Width 14.2 % (11.5-14.5); Segmented Neutrophils % 90.4 %; White Blood Count 13.4 K/mcL (4.3-11.1)
[2020-11-26 03:16] LABS: Alanine Aminotransferase 23 Units/L (7-52); Albumin 3.8 g/dL (3.5-5.7); Albumin/Globulin Ratio 1.1 (1.1-2.2); Alkaline Phosphatase 73 Units/L (34-104); Aspartate Amino Transferase 17 Units/L (13-39); BUN/Creatinine Ratio 14 (6-26); Bilirubin,Total 0.5 mg/dL (0.3-1.0); Blood Urea Nitrogen 13 mg/dL (6-20); Calcium 9.6 mg/dL (8.6-10.3); Carbon Dioxide 24 mEq/L (23-29); Chloride 101 mEq/L (98-107); Globulin 3.5 g/dL (2.4-3.5); Glucose 252 mg/dL (70-105); Lactate Dehydrogenase 151 Units/L (140-271); Osmolality,Calculated 283 (280-300); Potassium 4.1 mEq/L (3.5-5.1); Sodium 132 mEq/L (136-145); Total Protein 7.3 g/dL (6.4-8.9); eGFR For African Americans > 60 (> 60); eGFR For Non-African Americans > 60 (> 60)
[2020-11-26 03:51] LABS: Neutrophils # 12.1 K/mcL (1.6-8.9)
[2020-11-26 04:00] LABS: Platelet Count 28 K/mcL (140-400)
[2020-11-26] MEDS: Dexamethasone 4 MG/ML VIAL IVP SCH (09:48)
[2020-11-26] MEDS ORDERED: Ipratropium/Albuterol Neb 3 ML IH PRN (11:05)
[2020-11-26] MEDS ORDERED: Nicotine 2 MG GUM BC PRN (11:07)
[2020-11-26] MEDS ORDERED: Melatonin 3 MG TABLET PO PRN (16:42)
[2020-11-26] MEDS: Ipratropium/Albuterol Neb 3 ML IH SCH ×2 (17:09→22:42)
[2020-11-26 17:19] LABS: Chol/HDL Ratio 4.3 (0-4.9); Cholesterol 177 mg/dL (< 200); HDL Cholesterol 41 mg/dL (40-59); LDL Cholesterol,Calculated 119 mg/dL (< 100); Triglycerides 87 mg/dL (< 150)
[2020-11-26 17:20] LABS: Troponin I < 0.03 ng/mL (< 0.04)
[2020-11-26 17:33] LABS: Thyroid Stimulating Hormone 0.186 mcIU/mL (0.340-5.600)
[2020-11-26 17:53] LABS: Estimated Average Glucose 108 mg/dl; Hemoglobin A1C 5.4 %
[2020-11-26] MEDS: Azithromycin 250 MG TABLET PO SCH (18:52)
[2020-11-26] MEDS: Budesonide/Formoterol 160/4.5 1 PUFF INH IH SCH (22:42)
[2020-11-27] MEDS: Ipratropium/Albuterol Neb 3 ML IH SCH ×2 (03:55→09:44)
[2020-11-27 06:41] LABS: BUN/Creatinine Ratio 28 (6-26); Blood Urea Nitrogen 24 mg/dL (6-20); Carbon Dioxide 25 mEq/L (23-29); Chloride 104 mEq/L (98-107); Glucose 147 mg/dL (70-105); Magnesium 2.1 mg/dL (1.6-2.6); Osmolality,Calculated 289 (280-300); Phosphorous 1.8 mg/dL (2.7-4.5); Potassium 4.9 mEq/L (3.5-5.1); Sodium 136 mEq/L (136-145); eGFR For African Americans > 60 (> 60); eGFR For Non-African Americans > 60 (> 60)
[2020-11-27 08:30] LABS: Basophils % 0.1 %; Hematocrit 44.9 % (37.5-50.1); Hemoglobin 14.6 g/dL (12.9-16.9); Immature Granulocytes % 1.1 % (0-4); Immature Platelets 22.1 % (1.1-6.1); Lymphocytes # 1.2 K/mcL (0.6-4.6); Lymphocytes % 4.9 %; Mean Corpuscular HGB Conc 32.5 g/dL (31.6-35.5); Mean Corpuscular Hemoglobin 28.3 pg (28.0-33.3); Mean Corpuscular Volume 87.2 fL (83.0-100.0); Mean Platelet Volume 13.9 fL (9.4-12.4); Monocytes % 3.9 %; Neutrophils # 22.6 K/mcL (1.6-8.9); Platelet Count 118 K/mcL (140-400); Red Blood Count 5.15 M/mcL (4.19-5.50); Red Cell Distribution Width 14.2 % (11.5-14.5); White Blood Count 25.1 K/mcL (4.3-11.1)
[2020-11-27 08:54] LABS: Platelet Estimate Decreased (Normal)
[2020-11-27 08:55] LABS: Hypersegmented Neutrophils Present (Not Present)
[2020-11-27] MEDS: Dexamethasone 4 MG/ML VIAL IVP SCH (08:55)
[2020-11-27] MEDS: Azithromycin 250 MG TABLET PO SCH (08:55)
[2020-11-27] MEDS ORDERED: Multivit/Ca/Min/Fe/FA 1 TAB TABLET PO SCH (09:00)
[2020-11-27] MEDS: Budesonide/Formoterol 160/4.5 1 PUFF INH IH SCH (09:41)
[2020-11-27 10:31] VITALS: BP 130/79
[2020-11-27 12:42] LABS: Mean Platelet Volume 12.5 fL (9.4-12.4)
[2020-11-27 14:37] LABS: HCV Quant Interpretation DETECTED (Not Detected)
== END 2020-11-27 14:42 | disposition home or self-care (01) | DRG 442 ==
LOC: EMEROOARM 02:57 → 3ANU 02:57 → SUATTDRO 07:51 → 3ANU 09:24
PROVIDERS: ADMIT Internal Medicine; ATTEND Internal Medicine

== ENCOUNTER 2020-12-02 03:30 | Inpatient (IN) ==
[2020-12-02] MEDS ORDERED: Ipratropium/Albuterol Neb 3 ML IH ONE ×2 (03:48→04:15)
[2020-12-02] MEDS ORDERED: methylPREDNISolone 125 MG/2 ML VIAL IVP ONE (04:15)
[2020-12-02 04:35] LABS: Basophils % 0.2 %; Eosinophils # 0.3 K/mcL (0.0-0.6); Eosinophils % 2.2 %; Hemoglobin 14.8 g/dL (12.9-16.9); Immature Granulocytes % 0.7 % (0-4); Lymphocytes # 3.3 K/mcL (0.6-4.6); Lymphocytes % 24.3 %; Mean Corpuscular HGB Conc 32.9 g/dL (31.6-35.5); Mean Corpuscular Hemoglobin 28.2 pg (28.0-33.3); Mean Corpuscular Volume 85.7 fL (83.0-100.0); Mean Platelet Volume 12.4 fL (9.4-12.4); Monocytes # 1.3 K/mcL (0.0-1.3); Monocytes % 9.4 %; Neutrophils # 8.4 K/mcL (1.6-8.9); Platelet Count 161 K/mcL (140-400); Red Blood Count 5.25 M/mcL (4.19-5.50); Red Cell Distribution Width 13.9 % (11.5-14.5); Segmented Neutrophils % 63.2 %; White Blood Count 13.4 K/mcL (4.3-11.1)
[2020-12-02 04:50] LABS: BUN/Creatinine Ratio 25 (6-26); Blood Urea Nitrogen 22 mg/dL (6-20); Carbon Dioxide 29 mEq/L (23-29); Chloride 100 mEq/L (98-107); Glucose 110 mg/dL (70-105); Osmolality,Calculated 284 (280-300); Potassium 4.1 mEq/L (3.5-5.1); Sodium 135 mEq/L (136-145); eGFR For African Americans > 60 (> 60); eGFR For Non-African Americans > 60 (> 60)
[2020-12-02 04:51] LABS: Troponin I < 0.03 ng/mL (< 0.04)
[2020-12-02] MEDS ORDERED: Albuterol 2.5 MG/3 ML NEBULIZER IH ONE (06:50)
[2020-12-02] MEDS ORDERED: Isovue-370 500 ML BOTTLE IVP ONE (07:05)
[2020-12-02] MEDS ORDERED: Naloxone 0.4 MG/ML INJ IVP PRN (07:31)
[2020-12-02] MEDS ORDERED: Ondansetron 4 MG/2 ML VIAL IVP PRN (07:31)
[2020-12-02] MEDS ORDERED: Ipratropium/Albuterol Neb 3 ML ONE (07:44)
[2020-12-02] MEDS: Ipratropium/Albuterol Neb 3 ML IH SCH ×5 (09:15→23:41)
[2020-12-02] MEDS: MethylPREDNISolone 40 MG/ML VIAL IVP SCH ×2 (10:29→20:10)
[2020-12-02] MEDS: *HR* Heparin 5,000 UNIT/ML VIAL SQ SCH (19:09)
[2020-12-03] MEDS: MethylPREDNISolone 40 MG/ML VIAL IVP SCH ×3 (00:08→16:42)
[2020-12-03 01:34] LABS: Basophils % 0.1 %; Eosinophils % 0.1 %; Hematocrit 40.4 % (37.5-50.1); Hemoglobin 13.5 g/dL (12.9-16.9); Lymphocytes # 1.3 K/mcL (0.6-4.6); Lymphocytes % 9.8 %; Mean Corpuscular HGB Conc 33.4 g/dL (31.6-35.5); Mean Corpuscular Hemoglobin 28.8 pg (28.0-33.3); Mean Corpuscular Volume 86.1 fL (83.0-100.0); Mean Platelet Volume 12.9 fL (9.4-12.4); Monocytes # 0.8 K/mcL (0.0-1.3); Monocytes % 6.4 %; Neutrophils # 10.7 K/mcL (1.6-8.9); Platelet Count 162 K/mcL (140-400); Red Blood Count 4.69 M/mcL (4.19-5.50); Red Cell Distribution Width 14.1 % (11.5-14.5); Segmented Neutrophils % 82.6 %
[2020-12-03 01:46] LABS: BUN/Creatinine Ratio 25 (6-26); Blood Urea Nitrogen 21 mg/dL (6-20); Carbon Dioxide 28 mEq/L (23-29); Chloride 100 mEq/L (98-107); Glucose 147 mg/dL (70-105); Osmolality,Calculated 286 (280-300); Sodium 135 mEq/L (136-145); eGFR For African Americans > 60 (> 60); eGFR For Non-African Americans > 60 (> 60)
[2020-12-03] MEDS: Ipratropium/Albuterol Neb 3 ML IH SCH ×6 (03:11→23:55)
[2020-12-03] MEDS: *HR* Heparin 5,000 UNIT/ML VIAL SQ SCH ×2 (03:40→16:42)
[2020-12-03] MEDS: Azithromycin 250 MG TABLET PO SCH (05:13)
[2020-12-03] MEDS ORDERED: Perflutren Lipid Microsphere 1.3 ML in 0.9 % Sodium Chloride 8.7 ML IVP PRN (10:57)
[2020-12-03] MEDS: Aspirin 81 MG TAB.CHEW PO SCH (12:10)
[2020-12-04 02:44] LABS: Chol/HDL Ratio 4.1 (0-4.9)
[2020-12-04 02:46] LABS: BUN/Creatinine Ratio 29 (6-26); Blood Urea Nitrogen 23 mg/dL (6-20); Calcium 9.1 mg/dL (8.6-10.3); Carbon Dioxide 22 mEq/L (23-29); Chloride 103 mEq/L (98-107); Glucose 213 mg/dL (70-105); Osmolality,Calculated 288 (280-300); Potassium 4.2 mEq/L (3.5-5.1); Sodium 134 mEq/L (136-145); eGFR For African Americans > 60 (> 60); eGFR For Non-African Americans > 60 (> 60)
[2020-12-04] MEDS: Ipratropium/Albuterol Neb 3 ML IH SCH ×2 (04:13→07:52)
[2020-12-04] MEDS: Azithromycin 250 MG TABLET PO SCH ×2 (05:36→08:18)
[2020-12-04] MEDS: MethylPREDNISolone 40 MG/ML VIAL IVP SCH (05:36)
[2020-12-04] MEDS: *HR* Heparin 5,000 UNIT/ML VIAL SQ SCH (05:36)
[2020-12-04 06:27] LABS: Basophils % 0.1 %; Eosinophils % 0.1 %; Hematocrit 41.1 % (37.5-50.1); Hemoglobin 13.1 g/dL (12.9-16.9); Immature Granulocytes % 1.5 % (0-4); Lymphocytes % 13.6 %; Mean Corpuscular HGB Conc 31.9 g/dL (31.6-35.5); Mean Corpuscular Hemoglobin 28.1 pg (28.0-33.3); Monocytes # 0.6 K/mcL (0.0-1.3); Monocytes % 4.2 %; Platelet Count 186 K/mcL (140-400); Red Blood Count 4.67 M/mcL (4.19-5.50); Red Cell Distribution Width 14.5 % (11.5-14.5); Segmented Neutrophils % 80.5 %; White Blood Count 14.9 K/mcL (4.3-11.1)
[2020-12-04] MEDS: Aspirin 81 MG TAB.CHEW PO SCH (08:18)
[2020-12-04 08:22] VITALS: BP 124/84
[2020-12-04] MEDS ORDERED: predniSONE 20 MG TABLET PO SCH (09:00)
[2020-12-04] MEDS ORDERED: Ipratropium/Albuterol Neb 3 ML IH PRN (09:15)
== END 2020-12-04 11:37 | disposition home or self-care (01) | DRG 191 ==
LOC: 2ANU 03:30 → EMEROOARM 03:30 → 2ANU 09:36 → SUATTDRO 12-03 13:00
PROVIDERS: ADMIT Student in an Organized Health Care Education/Training Program; ATTEND General Practice